=== PATIENT | female | born 1990 | race American Indian/Alaskan Native ===

== ENCOUNTER 2017-03-14 20:21 | Emergency (ER) | payer MEDICAID ==
[2017-03-14 20:21] VITALS: BMI 27.9
[2017-03-14 20:45] VITALS: TEMP 98.2; O2SAT 100
[2017-03-14 21:25] LABS: HEMOGLOBIN 11.7 g/dL (12.0-16.0); MEAN CELL VOLUME 84.8 fl (80.0-105.0); MEAN CORPUSCULAR HEMOGLOBIN 27.4 pg (25.0-35.0); MEAN CORPUSCULAR HGB CONC 32.3 g/dl (31.0-37.0); MEAN PLATELET VOLUME 12.9 fl (7.0-11.0); RBC 4.27 10^6/uL (3.5-6.1); RED CELL DISTRIBUTION WIDTH 13.5 % (11.5-14.5); WHITE BLOOD COUNT 5.3 10^3/ul (4.5-11.0)
[2017-03-14 21:28] LABS: PH,URINE 6.5 (4.7-8.0); URINE BILIRUBIN NEGATIVE (NEGATIVE); URINE BLOOD NEGATIVE (NEGATIVE); URINE GLUCOSE (UA) NEGATIVE (NEGATIVE); URINE LEUKOCYTE ESTERASE TRACE Leu/uL (NEGATIVE); URINE NITRATE NEGATIVE (NEGATIVE); URINE PROTEIN NEGATIVE mg/dL (<30 mg/dL)
[2017-03-14 21:33] LABS: ALBUMIN 4.8 g/dL (3.0-4.8); ALT/SGPT 25 U/L (7-56); AST/SGOT 26 U/L (14-36); BLOOD UREA NITROGEN 9 mg/dL (7-21); GFR AFRICAN-AMERICAN > 60; GFR NON-AFRICAN AMERICAN > 60
[2017-03-14 21:35] LABS: URINE APPEARANCE CLEAR (CLEAR); URINE COLOR YELLOW (YELLOW)
[2017-03-14 21:36] LABS: HCG,QUALITATIVE URINE POSITIVE (NEGATIVE)
[2017-03-14 21:39] LABS: ALB/GLOB RATIO 1.3 (1.1-1.8)
[2017-03-14 22:11] LABS: URINE RBC 0 - 2 /hpf (0-2)
[2017-03-14 22:12] LABS: URINE BACTERIA OCC (NEG)
--- NOTE | 2017-03-14 22:54 | ED PDOC ---
Arrival/HPI - General Chief Complaint: Abdominal Pain Time Seen by Provider: 03/14/17 20:51 Historian: Patient - History of Present Illness Narrative History of Present Illness (Text): 03/14/17 20:50 Deisy Regan is a 26 year old female, P:2, who presents to the Emergency department for evaluation of abdominal cramp-like discomfort today. Patient also reports associated diarrhea. Patient denies any urinary symptoms, vaginal discharge/bleeding, fever, chills, chest pain, shortness of breath, nausea, vomiting, back pain, neck pain, headache, or any other complaints. Symptom Onset: Gradual Symptom Course: Unchanged Activities at Onset: Light Context: Home Past Medical History - Provider Review Nursing Documentation Reviewed: Yes - Infectious Disease Hx of Infectious Diseases: None - Psychiatric Hx Psychophysiologic Disorder: No Hx Substance Use: No - Anesthesia Hx Anesthesia: Yes Hx Anesthesia Reactions: No Hx Malignant Hyperthermia: No Family/Social History - Physician Review Nursing Documentation Reviewed: Yes Family/Social History: Unknown Family HX Smoking Status: Never Smoked Hx Alcohol Use: No Hx Substance Use: No Allergies/Home Meds Allergies/Adverse Reactions: Allergies No Known Allergies Allergy (Verified 03/14/17 20:40) Home Medications: Home Meds Medication Instructions Recorded Confirmed No Known Home Med 03/14/17 03/14/17 Review of Systems - Physician Review All systems were reviewed & negative as marked: Yes - Review of Systems Constitutional: Normal. absent: Fevers Eyes: Normal ENT: Normal Respiratory: Normal. absent: SOB, Cough Cardiovascular: Normal. absent: Chest Pain Gastrointestinal: Abdominal Pain, Diarrhea. absent: Nausea, Vomiting Genitourinary Female: Normal. absent: Dysuria, Frequency, Hematuria, Urine Output Changes, Vaginal Bleeding, Vaginal Discharge Musculoskeletal: Normal. absent: Neck Pain Skin: Normal. absent: Rash Neurological: Normal. absent: Headache, Dizziness Endocrine: Normal Hemo/Lymphatic: Normal Psychiatric: Normal Physical Exam Vital Signs Reviewed: Yes Vital Signs Temp Pulse Resp BP Pulse Ox 03/15/17 01:10 72 18 130/81 100 03/14/17 20:41 98.2 F 80 17 124/82 100 Temperature: Afebrile Blood Pressure: Normal Pulse: Regular Respiratory Rate: Normal Appearance: Positive for: Well-Appearing, Non-Toxic, Comfortable Pain Distress: None Mental Status: Positive for: Alert and Oriented X 3 - Systems Exam Head: Present: Atraumatic, Normocephalic Pupils: Present: PERRL Extroacular Muscles: Present: EOMI Conjunctiva: Present: Normal Mouth: Present: Moist Mucous Membranes Neck: Present: Normal Range of Motion Respiratory/Chest: Present: Clear to Auscultation, Good Air Exchange. No: Respiratory Distress, Accessory Muscle Use Cardiovascular: Present: Regular Rate and Rhythm, Normal S1, S2. No: Murmurs Abdomen: Present: Normal Bowel Sounds. No: Tenderness, Distention, Peritoneal Signs Back: Present: Normal Inspection Upper Extremity: Present: Normal Inspection. No: Cyanosis, Edema Lower Extremity: Present: Normal Inspection. No: Edema Neurological: Present: GCS=15, CN II-XII Intact, Speech Normal Skin: Present: Warm, Dry, Normal Color. No: Rashes Psychiatric: Present: Alert, Oriented x 3, Normal Insight, Normal Concentration Medical Decision Making ED Course and Treatment: 03/14/17 20:50 Impression: 26 year old female complaining of cramping abdominal discomfort. Plan: -- US Transvaginal -- Labs, beta-HCG, blood type and screein -- UA, urine cultures, GC/Chlamydia -- Reassess and disposition Progress Notes: Pt refused pelvic exam. 03/15/17 00:53 Reviewed sono, Transvaginal US shows: Gestation: Single intrauterine gestational sac with mean sac diameter corresponding to an estimated menstrual age at approximately 5 weeks. Normal yolk sac. Uterus/cervix: Uterus measures 8.9 x 5.4 x 7.6 CM. No myometrial mass. Ovaries: Right ovary measures 2.6 x 1.9 x 2.4 CM. Left ovary measures 3.7 x 2.1 x 2.6 CM. No mass. Free fluid: No free fluid. IMPRESSION: 1. Single intrauterine at approximately 5 weeks menstrual age. 2. Remainder of findings as above. 03/15/17 01:10 On re-evaluation, patient feels better and is in no acute distress. I have discussed the results and plan with the patient, who expresses understanding. Patient in agreement with plan to be discharged home. Patient is stable for discharge. Patient was instructed to follow up with physician or return if symptoms worsen or new concerning symptoms arise. - Lab Interpretations Lab Results: 03/14/17 21:10 03/14/17 21:10 Lab Results 03/14/17 21:10: Urine Color Yellow, Urine Appearance Clear, Urine pH 6.5, Ur Specific [place] 1.020, Urine Protein Negative, Urine Glucose (UA) Negative, Urine Ketones Negative, Urine Blood Negative, Urine Nitrate Negative, Urine Bilirubin Negative, Urine Urobilinogen 1.0 H, Ur Leukocyte Esterase Trace H, Urine RBC 0 - 2, Urine WBC 2 - 5, Ur Epithelial Cells 3 - 4, Urine Bacteria Occ , Urine HCG, Qual Positive 03/14/17 21:10: Blood Type A POSITIVE, Antibody Screen Negative, BBK History Checked Patient has bt 03/14/17 21:10: Beta HCG, Quant 4947.10 H 03/14/17 21:10: WBC 5.3 D, RBC 4.27, Hgb 11.7 L, Hct 36.2, MCV 84.8, MCH 27.4, MCHC 32.3, RDW 13.5, Plt Count 131, MPV 12.9 H 03/14/17 21:10: Sodium 137, Potassium 3.2 L, Chloride 101, Carbon Dioxide 26, Anion Gap 13, BUN 9, Creatinine 0.6 L, Est GFR ( Amer) > 60, Est GFR (Non -Af Amer) > 60, Random Glucose 82, Calcium 10.0, Total Bilirubin 0.4, AST 26, ALT 25, Alkaline Phosphatase 59, Total Protein 8.5 H, Albumin 4.8, Globulin 3.7 , Albumin/Globulin Ratio 1.3 I have reviewed the lab results: Yes - RAD Interpretation Radiology Orders: 03/14/17 20:52 OB TRANSVAGINAL [US] Stat Educational Aid: Radiologist - Medication Orders Current Medication Orders: Discontinued Medications Potassium Chloride (K-Dur 20 Meq Er Tab) 20 meq PO STAT STA Stop: 03/15/17 01:03 Last Admin: 03/15/17 01:31 Dose: Not Given Non-Admin Reason: Patient Refused - Scribe Statement The provider has reviewed the documentation as recorded by the Scriberasto German All medical record entries made by the Scribe were at my direction and personally dictated by me. I have reviewed the chart and agree that the record accurately reflects my personal performance of the history, physical exam, medical decision making, and the department course for this patient. I have also personally directed, reviewed, and agree with the discharge instructions and disposition. Disposition/Present on Arrival - Present on Arrival Any Indicators Present on Arrival: No History of DVT/PE: No History of Uncontrolled Diabetes: No Urinary Catheter: No History of Decub. Ulcer: No History Surgical Site Infection Following: None - Disposition Have Diagnosis and Disposition been Completed?: Yes Diagnosis: , Gastroenteritis Disposition: HOME/ ROUTINE Disposition Time: 01:11 Patient Plan: Discharge Condition: GOOD Discharge Instructions (ExitCare): (ED) Additional Instructions: Drink plenty of liquids/follow up with your science and operations officer this week Referrals: Merlene Alfonso, [Primary Care Provider] - Follow up with primary Forms: [facility] ([place])
--- NOTE | 2017-03-14 23:39 | US ---
EXAM: US , Transvaginal CLINICAL HISTORY: 26 years old, female; Pain; complicated by abdominal or pelvic pain; Lower; First trimester; Gestational age or lmp: 02/03/2017; TECHNIQUE: Real-time transvaginal obstetrical ultrasound of the maternal pelvis and a first trimester with image documentation. Transvaginal imaging was used for better evaluation of the fetus and adnexa. COMPARISON: No relevant prior studies available. FINDINGS: Gestation: Single intrauterine gestational sac with mean sac diameter corresponding to an estimated menstrual age at approximately 5 weeks. Normal yolk sac. Uterus/cervix: Uterus measures 8.9 x 5.4 x 7.6 CM. No myometrial mass. Ovaries: Right ovary measures 2.6 x 1.9 x 2.4 CM. Left ovary measures 3.7 x 2.1 x 2.6 CM. No mass. Free fluid: No free fluid. IMPRESSION: 1. Single intrauterine at approximately 5 weeks menstrual age. 2. Remainder of findings as above.
[2017-03-15] MEDS ORDERED: Potassium Chloride 20 mEq ER Tab PO STA (01:02)
[2017-03-15 01:33] VITALS: BP 130/81; PULSE 72; RESP 18
== END 2017-03-15 01:20 | disposition home or self-care (01) ==
LOC: ED 20:21
DX: O26.891 Other specified pregnancy related conditions, first trimester (principal); Z3A.01 Less than 8 weeks gestation of pregnancy; K52.9 Noninfective gastroenteritis and colitis, unspecified